=== PATIENT | female | born 1995 | race Caucasian/White ===

== ENCOUNTER 2021-06-26 09:12 | Emergency (ER) | payer OTHER ==
[~2021-06-26] VITALS: Ht 167.6 cm; Wt 71.4 kg
[2021-06-26] MEDS ORDERED: CIPR-249 PO (09:21)
[2021-06-26] MEDS ORDERED: ASPIRIN 81 MG CHEW TABLET PO ONE (09:35)
[2021-06-26 09:43] LABS: BASO % 0.5 % (0.0-1.0); EOS # 0.1 10^3/uL (0.0-0.5); EOS % 1.9 % (0.0-3.0); HEMATOCRIT 47.1 % (36.0-47.0); HEMOGLOBIN 15.3 g/dl (12.0-15.5); LYMPH # 2.9 10^3/uL (1.5-5.0); LYMPH % 46.7 % (24.0-44.0); MEAN CORPUSCULAR HEMOGLOBIN 28.9 pg (27.0-33.0); MEAN CORPUSCULAR HGB CONC 32.5 g/dl (32.0-36.5); MONO # 0.4 10^3/uL (0.0-0.8); MONO % 5.7 % (2.0-8.0); NEUTROPHILS # 2.8 10^3/uL (1.5-8.5); NEUTROPHILS % 44.9 % (36.0-66.0); PLATELET COUNT, AUTOMATED 252 10^3/uL (150-450); RED BLOOD COUNT 5.29 10^6/uL (4.00-5.40); WHITE BLOOD COUNT 6.3 10^3/uL (4.0-10.0)
--- NOTE | 2021-06-26 10:05 | REP ---
INDICATION: chest pain. COMPARISON: . TECHNIQUE: Upright PA and lateral chest. FINDINGS: The lung [place] are clear. Cardiac size is normal. The thor, mediastinum and skeletal structures are unremarkable. IMPRESSION: Essentially negative PA and lateral chest <Electronically signed by Krzysztof Perez > 06/26/21 1002
[2021-06-26 10:15] LABS: ALBUMIN 4.7 GM/DL (3.2-5.2); ALT/SGPT 22 U/L (12-78); BILIRUBIN,DIRECT 0.1 MG/DL (0.0-0.2); BILIRUBIN,TOTAL 0.6 MG/DL (0.2-1.0); BLOOD UREA NITROGEN 14 MG/DL (7-18); CALCIUM LEVEL 9.2 MG/DL (8.5-10.1); CARBON DIOXIDE LEVEL 25 MEQ/L (21-32); CHLORIDE LEVEL 107 MEQ/L (98-107); CPK CREATINE PHOSPHOKINASE 99 U/L (26-192); CREATININE FOR GFR 0.86 MG/DL (0.55-1.30); GLOMERULAR FILTRATION RATE > 60.0 (>60); GLUCOSE, FASTING 102 MG/DL (70-100); LIPASE 106 U/L (73-393); MB/CK RELATIVE INDEX 1.01 (< OR =4); POTASSIUM SERUM 4.1 MEQ/L (3.5-5.1); SODIUM LEVEL 138 MEQ/L (136-145); TROPONIN I < 0.02 NG/ML (< 0.10)
[2021-06-26 11:00] VITALS: BP 105/56
--- NOTE | 2021-06-27 12:05 | ECGEPIP ---
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
== END 2021-06-26 11:08 | disposition home or self-care (01) ==
LOC: M ED 09:12
DX: R07.9 Chest pain, unspecified (principal); R11.0 Nausea

== ENCOUNTER 2023-05-06 22:50 | Emergency (ER) | payer OTHER ==
[~2023-05-06] VITALS: Ht 167.6 cm; Wt 65.3 kg
[~2023-05-06 22:50] MED LIST: CIPR-249 PO
[2023-05-06 23:33] LABS: BASO % 0.1 % (0.0-1.0); EOS # 0.1 10^3/uL (0.0-0.5); EOS % 0.9 % (0.0-3.0); HEMATOCRIT 41.3 % (36.0-47.0); HEMOGLOBIN 13.9 g/dl (12.0-15.5); MEAN CORPUSCULAR HEMOGLOBIN 28.8 pg (27.0-33.0); MEAN CORPUSCULAR HGB CONC 33.7 g/dl (32.0-36.5); MEAN CORPUSCULAR VOLUME 85.7 fl (80.0-96.0); MONO # 0.6 10^3/uL (0.0-0.8); MONO % 7.1 % (2.0-8.0); NEUTROPHILS # 6.4 10^3/uL (1.5-8.5); NEUTROPHILS % 79.7 % (36.0-66.0); PLATELET COUNT, AUTOMATED 215 10^3/uL (150-450); RED BLOOD COUNT 4.82 10^6/uL (4.00-5.40)
[2023-05-06 23:45] LABS: APPEARANCE, URINE HAZY (CLEAR); BACTERIA, URINE AUTO NEGATIVE (NEGATIVE); BILIRUBIN, URINE AUTO 1+ (NEGATIVE); BLOOD, URINE BLOOD NEGATIVE (NEGATIVE); COLOR, URINE YELLOW (YELLOW); GLUCOSE, URINE (UA) AUTO NEGATIVE (NEGATIVE); KETONE, URINE AUTO 2+ mg/dL (NEGATIVE); LEUKOCYTE ESTERASE, URINE AUTO NEGATIVE (NEGATIVE); MUCUS, URINE MODERATE (NEGATIVE); NITRITE, URINE AUTO NEGATIVE (NEGATIVE); PROTEIN, URINE AUTO 1+ mg/dL (NEGATIVE); RBC, URINE AUTO 2 /HPF (0-3); SPECIFIC GRAVITY URINE AUTO 1.027 (1.002-1.035); SQUAMOUS EPITHELIAL CELL UR AU 5 /HPF (0-6); WBC, URINE AUTO 1 /HPF (0-3)
[2023-05-07 00:04] LABS: LIPASE 29 U/L (12-53)
[2023-05-07 00:05] LABS: ALBUMIN 4.2 G/DL (3.2-5.2); ALKALINE PHOSPHATASE 58 U/L (46-116); ALT/SGPT 15 U/L (7.0-40); AST/SGOT 11 U/L (<34); BILIRUBIN,DIRECT 0.1 MG/DL (<0.4); BILIRUBIN,TOTAL 0.6 MG/DL (0.3-1.2); BLOOD UREA NITROGEN 15 MG/DL (9-23); CALCIUM LEVEL 8.9 MG/DL (8.5-10.1); CARBON DIOXIDE LEVEL 24 MMOL/L (20-31); CHLORIDE LEVEL 103 MMOL/L (98-107); CREATININE FOR GFR 0.77 MG/DL (0.55-1.30); GLOMERULAR FILTRATION RATE > 60.0 (>60); GLUCOSE, FASTING 100 MG/DL (60-100); POTASSIUM SERUM 3.6 MMOL/L (3.5-5.1); SODIUM LEVEL 137 MMOL/L (136-145)
[2023-05-07 00:08] LABS: HCG, SERUM QUALITATIVE NEGATIVE (NEGATIVE)
[2023-05-07 06:56] VITALS: BP 121/72; TEMP 98.2; O2SAT 98
[2023-05-07] MEDS ORDERED: NS 1,000 ML IV ONE ×2 (07:30→07:35)
[2023-05-07 07:54] LABS: RSV AMPLIFICATION NEGATIVE (NEGATIVE)
[2023-05-07] MEDS ORDERED: ISOVUE-370 76% 100ML VIAL As Ordered ONE (08:04)
== END 2023-05-07 10:08 | disposition home or self-care (01) ==
LOC: M ED 22:50
DX: R10.9 Unspecified abdominal pain (principal); R19.7 Diarrhea, unspecified; A08.0 Rotaviral enteritis; K58.9 Irritable bowel syndrome, unspecified
CPT/HCPCS: 36415; 74177; 80048; 80076; 81001; 83690; 84703; 85025; 87507; 87631; 93005; 99284; Q9967

== ENCOUNTER 2024-04-27 08:55 | Emergency (ER) | payer OTHER ==
[~2024-04-27] VITALS: Ht 167.6 cm; Wt 65.8 kg
[2024-04-27] MEDS ORDERED: AMOX875T2 PO (09:03)
[2024-04-27] MEDS: NS 1,000 ML IV ONE (11:30)
[2024-04-27] MEDS: KETOROLAC 30 MG/ML 1ML VIAL IV ONE (11:30)
[2024-04-27 11:49] LABS: BASO % 0.1 % (0.0-1.0); EOS # 0.1 10^3/uL (0.0-0.5); EOS % 0.9 % (0.0-3.0); HEMATOCRIT 41.4 % (36.0-47.0); HEMOGLOBIN 13.9 g/dl (12.0-15.5); LYMPH # 1.8 10^3/uL (1.5-5.0); LYMPH % 25.7 % (24.0-44.0); MEAN CORPUSCULAR HEMOGLOBIN 29.2 pg (27.0-33.0); MEAN CORPUSCULAR HGB CONC 33.6 g/dl (32.0-36.5); MONO # 0.4 10^3/uL (0.0-0.8); MONO % 6.2 % (2.0-8.0); NEUTROPHILS # 4.6 10^3/uL (1.5-8.5); NEUTROPHILS % 66.8 % (36.0-66.0); PLATELET COUNT, AUTOMATED 180 10^3/uL (150-450); RED BLOOD COUNT 4.76 10^6/uL (4.00-5.40); WHITE BLOOD COUNT 6.8 10^3/uL (4.0-10.0)
[2024-04-27 11:53] LABS: ERYTHROCYTE SEDIMENTATION RATE 13 mm/hr (0-20)
[2024-04-27 12:09] LABS: C REACTIVE PROTEIN QUANTITATIV < 0.40 MG/DL (<1.0)
[2024-04-27 12:11] LABS: BLOOD UREA NITROGEN 11 MG/DL (9-23); CARBON DIOXIDE LEVEL 25 MMOL/L (20-31); CHLORIDE LEVEL 107 MMOL/L (98-107); CREATININE FOR GFR 0.73 MG/DL (0.55-1.30); GLOMERULAR FILTRATION RATE > 60.0 (>60); GLUCOSE, FASTING 86 MG/DL (60-100); SODIUM LEVEL 140 MMOL/L (136-145)
[2024-04-27] MEDS ORDERED: METH-1165 PO (14:12)
[2024-04-27] MEDS ORDERED: KETO10TAB PO (14:12)
[2024-04-27 14:34] VITALS: BP 113/60; TEMP 97.2; O2SAT 98
== END 2024-04-27 14:36 | disposition home or self-care (01) ==
LOC: M ED 08:55
DX: G44.209 Tension-type headache, unspecified, not intractable (principal)
CPT/HCPCS: 70450; 80048; 85025; 85652; 86140; 96374; 99284; J1885